=== PATIENT | male | born 1980 | race Caucasian/White ===

== ENCOUNTER 2016-10-03 07:10 | Emergency (ER) | payer SELFPAY ==
[2016-10-03] MEDS ORDERED: IBUPROFEN 600 MG TABLET PO ONE (07:32)
[2016-10-03] MEDS ORDERED: LevETIRAcetam Tab 500 MG TABLET PO ONE (07:32)
[2016-10-03 07:33] VITALS: RESP 16; TEMP 98.7
--- NOTE | 2016-10-03 07:53 | PDOC ---
Seizure HPI - General Chief Complaint: Neurological Complaints Stated Complaint: seizure Date Seen by Provider: 10/03/16 Time Seen by Provider: 07:30 Source: POSITIVE: Patient Exam Limitations: POSITIVE: No limitations Nurse's Notes Reviewed & Considered: Yes - History of Present Illness Initial Comments: The patient is a 36-year-old male who is brought to the emergency department after he had a seizure at home. His roommate apparently called EMS after the patient developed seizure activity at home. He has a known history of seizure disorder. He apparently stopped taking Keppra and Dilantin over 3 months ago because he thought that it was actually causing more seizures. He reports that he has not had any seizures that he is aware of over the past several months. When EMS arrived the patient was postictal however was awake and alert and answering questions appropriately. He refused IV starts in route. On arrival he does report some pain to the left side of his face. He denies any change in vision, headache, numbness or weakness in his extremities, neck pain or any other associated symptoms. He denies any recent trauma or illness. He does not currently drive. 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 Pt. states "I wasnt using other peoples needles...I just would reuse my own and they were not clean". Respiratory History: Denies History Gastrointestinal History: Denies History Genitourinary History: Denies History Endocrine History: Denies History Musculoskeletal History: Denies History Neurological History: Seizures, Migraines Additional Neurological History: migraines 1-2 x month until this year and they stopped. no imitrex for 7 months Blood Disorders: Denies History Psychiatric History: Substance Abuse History of Sexually Transmitted Diseases: Yes (7-8 yrs ago chlamydia) Male Reproductive History: Denies History Cancer History: Denies History In Past Year Been Physically Harmed or Verbally Threatened: No History of MDRO: No History of Other Communicable Diseases: No Tobacco Use: Former Smoker Alcohol Use: None Substance Use Type: Heroin, Marijuana, Methamphetamines, Other (please comment) Previous Surgical History: No Type / Date of Surgery: Hx of tonsillectomy and adnoidectomy. Anesthesia Reactions: No Malignant Hyperthermia: No Significant Family History: No pertinent family hx Past Medical History Reviewed: Reviewed - No Changes ROS - Limitations ROS Limitations: No Limitations Constitution: REPORTS: Denies Symptoms Cardiovascular: REPORTS: Denies Cardiac Symptoms Respiratory: REPORTS: Denies Resp Symptoms Neurological: REPORTS: Seizure Activity. DENIES: Headache, Numbness, Weakness Gastrointestinal: DENIES: Abdominal Pain, Nausea Musculoskeletal: REPORTS: Denies MS Symptoms Eyes: REPORTS: Denies Symptoms. DENIES: Vision Changes ENT: REPORTS: Other (He does have pain to the left side of his face primarily in the left cheek, denies any dental injury or pain in the temporomandibular joint) Seizure Exam - General Appearance General Appearance: POSITIVE: No Acute Distress, Alert - HEENT HEENT: POSITIVE: Eyes Inspection Nml, Ears Inspection Nml, Nose Inspection Nml, Pharynx Inspect. Nml, PERRL, EOMI, Other (He does have a small abrasion to the left for head as well as to the left cheek. There is some swelling and tenderness to the left zygomatic region, extraocular eye movements are intact, no temporal mandibular joint tenderness) - Neck Neck: POSITIVE: Non Tender, Neck Supple, Trachea Midline - Respiratory Respiratory: POSITIVE: Chest Non Tender, Breath Sounds Normal, No Respiratory Distress - Cardiovascular Cardiovascular: POSITIVE: Regular Rate and Rhythm, Heart Sounds Normal - Abdomen Abdomen: Soft: (All Quadrants), Denies Tenderness: (All Quadrants), No Distention: (All Quadrants) - Skin Skin: POSITIVE: Intact, No Rash - Extremities Extremity: Normal ROM: (All Extremities), Normal Inspection: (All Extremities) - Neuro / Psych Higher Functions: POSITIVE: Oriented x3, Speech Normal Cranial Nerves: POSITIVE: Normal As Tested Sensorimotor: POSITIVE: No Motor Deficits, No Sensory Deficits Seizure Progress - Patient's Progress MDM / ED Course: On arrival the patient is awake and alert and answering questions appropriately. I did advise that he have blood work and CT of his facial bones however he refused this testing. He did agree to restarting an anticonvulsant. He stated he would be willing to restart Keppra. He was started on Keppra 500 mg twice a day for one week after which she is advised to increase to 1000 mg twice a day. He does not currently have any neurologist locally and last saw a neurologist in [place] over a year ago. He was advised that he will need to establish neurology care and was given the number for the neurology clinic in [place]. He may need to follow-up locally first depending on when he can get his appointment with the neurologist. He is advised return to the emergency room if worsening seizure activity, any worsening or change in symptoms. He can take Tylenol or ibuprofen as needed for facial pain and was given a dose of ibuprofen here in the emergency room. - Consult Counseled: POSITIVE: Patient, RE: DX, RE: Need for F/U Patient Care Time - Estimated PCT Patient Care Time (In Minutes): 15 Vital Signs - Recent Vital Signs Vital Signs: Vital Signs (Last 8 hours) Temp Pulse Resp BP Pulse Ox 10/03/16 07:26 98.7 F 96 16 128/90 92 - VS Reviewed Vital Signs Reviewed: Yes Discharge Clinical Impression: Seizure Discharge Disposition: Discharged to Home Condition: Stable Prescriptions / Orders: levETIRAcetam Tab [Keppra Tab] 500 mg PO BID #90 tablet Patient Instructions Given at Discharge: Epilepsy (ED) Additional Instructions: It appears that you have had a seizure this morning. As per your request scans her blood work was done here in the emergency department. You have been restarted on Keppra 500 mg twice a day for one week and then increase to 1000 mg twice a day. He should return to the emergency room if further or worsening seizure activity, increased pain, increased headache, numbness or weakness in her extremities, change in vision, any worsening or change in symptoms. You can take ibuprofen or Tylenol as needed for pain. Recommend follow-up with primary care at the clinic here within one or 2 weeks. In addition you should establish neurology follow-up in [place]. The phone number for [facility] in [place] is [phone]. Follow Up With: NONE,NONE [Primary Care Provider] -
== END 2016-10-03 08:06 | disposition home or self-care (01) ==
LOC: ER 07:10
DX: G40.909 Epilepsy, unspecified, not intractable, without status epilepticus (principal); S00.81XA Abrasion of other part of head, initial encounter
CPT/HCPCS: 99282

== ENCOUNTER 2016-10-28 09:54 | Emergency (ER) | payer SELFPAY ==
[2016-10-28 15:04] VITALS: RESP 18; TEMP 97.7
--- NOTE | 2016-10-28 16:20 | PDOC ---
Seizure HPI - General Chief Complaint: Neurological Complaints Stated Complaint: SEIZURE Date Seen by Provider: 10/28/16 Time Seen by Provider: 10:00 Source: POSITIVE: Patient, EMS Exam Limitations: POSITIVE: No limitations Nurse's Notes Reviewed & Considered: Yes EMS Report Reviewed & Considered: Verbal - History of Present Illness Initial Comments: The patient is a 36-year-old male with a known history of seizures who presents to the emergency department after a seizure this morning. His dad apparently called 911 after the patient had a seizure and hit his head. When EMS arrived they found the patient on the floor. He has a large scalp laceration and there was a fair amount of bleeding on seen. The patient was somewhat confused and combative when EMS arrived. In route the patient was becoming more responsive and refused any IV access. The patient does have a known history of seizures and was evaluated here in the emergency department 2 weeks ago after he had had a seizure. He had been prescribed Keppra and advised to follow-up with the neurology office in [place] as well as the primary care office here in [facility]. He states he did not fill his prescription for the anti-seizure medication and he did not arrange for any follow-up. On arrival the patient states that he feels fine and does not want any treatment. 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 Pt. states "I wasnt using other peoples needles...I just would reuse my own and they were not clean". Respiratory History: Denies History Gastrointestinal History: Denies History Genitourinary History: Denies History Endocrine History: Denies History Musculoskeletal History: Denies History Prosthesis or Implant: No Neurological History: Seizures, Migraines Additional Neurological History: migraines 1-2 x month until this year and they stopped. no imitrex for 7 months Blood Disorders: Denies History Psychiatric History: Denies History History of Sexually Transmitted Diseases: Yes (7-8 yrs ago chlamydia) Cancer History: Denies History In Past Year Been Physically Harmed or Verbally Threatened: No History of MDRO: No History of Other Communicable Diseases: No Tobacco Use: Never Smoker Alcohol Use: Occasionally Substance Use Type: Heroin, Marijuana, Methamphetamines, Other (please comment) Previous Surgical History: No Type / Date of Surgery: Hx of tonsillectomy and adnoidectomy. Anesthesia Reactions: No Malignant Hyperthermia: No Significant Family History: No pertinent family hx Past Medical History Reviewed: Reviewed - No Changes ROS - Limitations ROS Limitations: No Limitations Cardiovascular: REPORTS: Denies Cardiac Symptoms Respiratory: REPORTS: Denies Resp Symptoms Neurological: DENIES: Headache, Numbness, Weakness Gastrointestinal: REPORTS: Denies GI Symptoms Musculoskeletal: REPORTS: Other (Has a scrape to his left arm but denies any associated pain) Eyes: REPORTS: Denies Symptoms ENT: REPORTS: Denies Symptoms, Other (Denies neck pain) Seizure Exam - General Appearance General Appearance: POSITIVE: No Acute Distress - HEENT HEENT: POSITIVE: PERRL, EOMI, Other (The patient has a 4-5 cm gaping laceration to the right temporal/frontal scalp with no active bleeding at this time, there is some associated scalp swelling and tenderness) - Neck Neck: POSITIVE: Non Tender, Neck Supple, Trachea Midline - Respiratory Respiratory: POSITIVE: Chest Non Tender, Breath Sounds Normal, No Respiratory Distress - Cardiovascular Cardiovascular: POSITIVE: Regular Rate and Rhythm, Heart Sounds Normal - Abdomen Abdomen: Soft: (All Quadrants), Denies Tenderness: (All Quadrants) - Skin Skin: POSITIVE: Intact, No Rash - Extremities Extremity: Normal ROM: (All Extremities), Normal Inspection: (All Extremities) - Neuro / Psych Higher Functions: POSITIVE: Other (On arrival the patient was awake and alert and was answering questions however he could not remember the date or the year thinking it was 2016.) Cranial Nerves: POSITIVE: Normal As Tested Sensorimotor: POSITIVE: No Motor Deficits, No Sensory Deficits Seizure Progress - Patient's Progress MDM / ED Course: On arrival the patient was awake and alert, appeared to be mildly post ictal is initially he could not remember the date or even the month. He thought he was 35 years old. He was adamant about not having an IV established or CAT scan done of his head. He was also adamant about not having the laceration to his scalp repaired. The patient was allowed to sit in the emergency department and his mentation cleared and he was able to state the date as well as his name and where he was at. He remained adamant about not having any medical treatment and became increasingly anxious to be discharged. He does have a very large scalp laceration that I strongly encouraged him to have repaired. He was instructed that there is a short time window to have lacerations repaired. In addition I felt strongly that he should have a head CT. He had refused both of these and I recommended that if he desired to leave that he should sign out AGAINST MEDICAL ADVICE. At that time he was appropriately oriented and demonstrated understanding of the concern regarding the laceration repair and possible seriousness of having intracranial bleeding. He was adamant about leaving the emergency department and signed out AGAINST MEDICAL ADVICE. We tried waiting until his dad can come and pick him up and possibly talk him into staying and having at least the laceration repaired however he would not wait for this either. - Consult Counseled: POSITIVE: Patient, RE: DX, RE: Need for F/U Patient Care Time - Estimated PCT Patient Care Time (In Minutes): 25 Vital Signs - Recent Vital Signs Vital Signs: Vital Signs (Last 8 hours) Temp Pulse Resp BP Pulse Ox 10/28/16 10:00 97.7 F 99 18 128/94 96 - VS Reviewed Vital Signs Reviewed: Yes Discharge Clinical Impression: Seizure, Laceration of scalp Discharge Disposition: Against Medical Advice Condition: Fair Follow Up With: NONE,NONE [Primary Care Provider] -
== END 2016-10-28 10:45 | disposition left against medical advice (07) ==
LOC: ER 09:54
DX: S01.01XA Laceration without foreign body of scalp, initial encounter (principal); G40.909 Epilepsy, unspecified, not intractable, without status epilepticus
CPT/HCPCS: 99282